=== PATIENT | male | born 1960 | race African-American/Black ===

== ENCOUNTER 2017-02-05 13:46 | Emergency (ER) | payer MEDICAID ==
[~2017-02-05] VITALS: Ht 175.3 cm; Wt 79.0 kg
[~2017-02-05 13:46] MED LIST: HYDR25TA PO; PHEN100C4 PO
[2017-02-05] MEDS ORDERED: INSULIN REGULAR (HUMULIN R) 300UNITS/3ML IV ONE (20:15)
[2017-02-05] MEDS ORDERED: DEXTROSE 50% WATER 50ML SYRINGE IV ONE (20:15)
[2017-02-05] MEDS ORDERED: CALCIUM CHLORIDE 1GM/10ML SYR IV ONE (20:15)
[2017-02-05] MEDS ORDERED: PHENYTOIN SODIUM 1,000 MG in SODIUM CHLORIDE 0.9% 100 ML IV ONE (20:15)
[2017-02-05] MEDS ORDERED: SODIUM BICARBONATE 8.4% 1 MEQ/ML 50ML SYR IV ONE (20:15)
[2017-02-05 21:01] LABS: EOSINOPHILS % 0.6 % (0.0-5.0); HEMATOCRIT. 40.6 % (42.0-52.0); HEMOGLOBIN. 13.6 g/dL (14.0-18.0); MEAN CORPUSCULAR HEMOGLOBIN 28.1 pg (28.0-32.0); MEAN CORPUSCULAR VOLUME 84.2 fL (80.0-94.0); MEAN PLATELET VOLUME 7.9 fl (7.4-10.4); MONOCYTES % 10.4 % (2.0-8.0); PLATELET 226 x1000/uL (130-400); RED BLOOD CELL COUNT 4.82 mill/uL (4.7-6.1); RED CELL DISTRIBUTION WIDTH 15.2 % (11.6-14.6)
[2017-02-05 21:07] LABS: INR 1.1
[2017-02-05 21:19] LABS: CARBON DIOXIDE 26 mEq/L (21-32); CHLORIDE 106 mEq/L (98-107); ETHANOL BLOOD < 10 mg/dL
[2017-02-05 21:56] LABS: CLARITY URINE CLEAR (CLEAR); COLOR URINE YELLOW (YELLOW); KETONES URINE TRACE (NEGATIVE); LEUKOCYTE ESTERASE URINE NEGATIVE (NEGATIVE); NITRITE URINE NEGATIVE (NEGATIVE); OCCULT BLOOD URINE NEGATIVE (NEGATIVE); PROTEIN URINE NEGATIVE (NEGATIVE); SPECIFIC GRAVITY URINE 1.028 (1.005-1.030)
[2017-02-05 22:32] LABS: *AMPHETAMINES SCREEN URINE NEGATIVE (NEGATIVE); *BARBITURATES SCREEN URINE NEGATIVE (NEGATIVE); *BENZODIAZEPINES SCREEN URINE NEGATIVE (NEGATIVE); *COCAINE SCREEN URINE NEGATIVE (NEGATIVE); CANNABINOID URINE SCREEN PRESUMTIVE POSITIVE (NEGATIVE); METHADONE URINE SCREEN NEGATIVE (NEGATIVE); OPIATES URINE SCREEN NEGATIVE (NEGATIVE); PHENCYCLIDINE URINE SCREEN NEGATIVE (NEGATIVE)
[2017-02-05 23:02] VITALS: BP 158/94
== END 2017-02-05 23:04 | disposition home or self-care (01) ==
LOC: ER 14:07
DX: G40.909 Epilepsy, unspecified, not intractable, without status epilepticus (principal); I10 Essential (primary) hypertension; G93.89 Other specified disorders of brain; J44.9 Chronic obstructive pulmonary disease, unspecified; F17.210 Nicotine dependence, cigarettes, uncomplicated; Z95.1 Presence of aortocoronary bypass graft; Z88.5 Allergy status to narcotic agent; F10.21 Alcohol dependence, in remission
CPT/HCPCS: 36415; 70450; 71010; 80053; 80305; 81003; 82962; 85025; 85610; 93005; 96365; 96366; 99285; G0482; J1165; J3490; Z7610; J1815; J7050

== ENCOUNTER 2017-03-11 01:54 | Emergency (ER) | payer MEDICAID ==
[~2017-03-11] VITALS: Ht 175.3 cm; Wt 67.0 kg
[2017-03-11] MEDS ORDERED: ALBUTEROL (0.083%) 2.5MG/3ML NEB HHN STA (03:07)
[2017-03-11] MEDS ORDERED: IPRATROPIUM BROMIDE (0.02%) 0.5MG/2.5ML NEB HHN STA (03:07)
[2017-03-11 03:24] LABS: BASOPHILS % 0.9 % (0.0-2.0); EOSINOPHILS % 1.8 % (0.0-5.0); HEMATOCRIT. 39.6 % (42.0-52.0); HEMOGLOBIN. 13.3 g/dL (14.0-18.0); LYMPHOCYTES % 24.7 % (20.0-50.0); MEAN CORPUSCULAR HEMOGLOBIN 28.5 pg (28.0-32.0); MEAN CORPUSCULAR VOLUME 84.7 fL (80.0-94.0); MEAN PLATELET VOLUME 7.7 fl (7.4-10.4); MONOCYTES % 9.8 % (2.0-8.0); NEUTROPHILS % 62.8 % (40.0-76.0); PLATELET 223 x1000/uL (130-400); RED BLOOD CELL COUNT 4.67 mill/uL (4.7-6.1); RED CELL DISTRIBUTION WIDTH 14.9 % (11.6-14.6)
[2017-03-11 03:34] LABS: CARBON DIOXIDE 26 mEq/L (21-32); CHLORIDE 110 mEq/L (98-107)
[2017-03-11 03:39] LABS: CLARITY URINE CLEAR (CLEAR); COLOR URINE YELLOW (YELLOW); KETONES URINE TRACE (NEGATIVE); LEUKOCYTE ESTERASE URINE NEGATIVE (NEGATIVE); NITRITE URINE NEGATIVE (NEGATIVE); OCCULT BLOOD URINE NEGATIVE (NEGATIVE); PH URINE 5.5 (4.5-8.0); PROTEIN URINE NEGATIVE (NEGATIVE); SPECIFIC GRAVITY URINE 1.029 (1.005-1.030)
[2017-03-11 03:49] LABS: *AMPHETAMINES SCREEN URINE NEGATIVE (NEGATIVE); *BARBITURATES SCREEN URINE NEGATIVE (NEGATIVE); *BENZODIAZEPINES SCREEN URINE NEGATIVE (NEGATIVE); *COCAINE SCREEN URINE NEGATIVE (NEGATIVE); CANNABINOID URINE SCREEN PRESUMTIVE POSITIVE (NEGATIVE); METHADONE URINE SCREEN NEGATIVE (NEGATIVE); OPIATES URINE SCREEN NEGATIVE (NEGATIVE); PHENCYCLIDINE URINE SCREEN NEGATIVE (NEGATIVE)
[2017-03-11 05:30] VITALS: BP 155/84
== END 2017-03-11 05:52 | disposition home or self-care (01) ==
LOC: ER 01:54
DX: J44.9 Chronic obstructive pulmonary disease, unspecified (principal); R42 Dizziness and giddiness; F17.200 Nicotine dependence, unspecified, uncomplicated; I10 Essential (primary) hypertension; I51.7 Cardiomegaly; R56.9 Unspecified convulsions; Z88.5 Allergy status to narcotic agent; Z91.010 Allergy to peanuts
CPT/HCPCS: 36415; 70450; 71045; 80048; 80185; 80305; 81003; 85025; 93005; 94640; 99285; J7611; Z7610

== ENCOUNTER 2017-04-02 09:00 | Emergency (ER) | payer MEDICAID ==
[~2017-04-02] VITALS: Ht 175.3 cm; Wt 76.0 kg
[2017-04-02] MEDS ORDERED: VALPROATE SODIUM 500 MG in DEXT 5% WATER 100 ML IV ONE (11:00)
[2017-04-02 12:17] VITALS: BP 159/93
== END 2017-04-02 12:39 | disposition home or self-care (01) ==
LOC: ER 09:58
DX: G40.909 Epilepsy, unspecified, not intractable, without status epilepticus (principal); Z88.5 Allergy status to narcotic agent; J44.9 Chronic obstructive pulmonary disease, unspecified; I10 Essential (primary) hypertension; F17.200 Nicotine dependence, unspecified, uncomplicated; Z91.010 Allergy to peanuts; Z91.14 Patient's other noncompliance with medication regimen
CPT/HCPCS: 96365; 99284; J3490; Z7610; J7060

== ENCOUNTER 2017-08-06 09:46 | Emergency (ER) | payer MEDICAID ==
[~2017-08-06] VITALS: Ht 175.3 cm; Wt 63.1 kg
[2017-08-06 12:09] VITALS: BP 168/103
== END 2017-08-06 12:10 | disposition home or self-care (01) ==
LOC: ER 10:16
DX: R56.9 Unspecified convulsions (principal); J44.9 Chronic obstructive pulmonary disease, unspecified; I10 Essential (primary) hypertension; F17.200 Nicotine dependence, unspecified, uncomplicated; F12.10 Cannabis abuse, uncomplicated; Z76.0 Encounter for issue of repeat prescription; Z91.010 Allergy to peanuts; Z88.5 Allergy status to narcotic agent
CPT/HCPCS: 99283; Z7610

== ENCOUNTER 2017-08-09 15:31 | Emergency (ER) | payer MEDICAID ==
[~2017-08-09] VITALS: Ht 175.3 cm; Wt 78.0 kg
[2017-08-09] MEDS ORDERED: LEVETIRACETAM 500MG TABLET PO ONE (16:45)
[2017-08-09 17:11] LABS: HEMATOCRIT 39.2 % (42.0-52.0); HEMOGLOBIN 13.2 g/dL (14.0-18.0); MEAN CORPUSCULAR HEMOGLOBIN 28.9 pg (28.0-32.0); MEAN CORPUSCULAR VOLUME 85.9 fL (80.0-94.0); PLATELET 213 x1000/uL (130-400); RED BLOOD CELL COUNT 4.57 mill/uL (4.7-6.1); RED CELL DISTRIBUTION WIDTH 13.8 % (11.6-14.6)
[2017-08-09 17:13] LABS: CHLORIDE 105 mEq/L (98-107)
[2017-08-09 18:29] VITALS: BP 155/97
== END 2017-08-09 18:49 | disposition home or self-care (01) ==
LOC: ER 15:31
DX: G40.909 Epilepsy, unspecified, not intractable, without status epilepticus (principal); R20.2 Paresthesia of skin; J44.9 Chronic obstructive pulmonary disease, unspecified; I10 Essential (primary) hypertension; F17.200 Nicotine dependence, unspecified, uncomplicated; F12.10 Cannabis abuse, uncomplicated; Z91.010 Allergy to peanuts; Z88.5 Allergy status to narcotic agent
CPT/HCPCS: 36415; 80053; 80185; 85027; 99284

== ENCOUNTER 2017-11-28 13:01 | Emergency (ER) | payer MEDICAID ==
[~2017-11-28] VITALS: Ht 167.6 cm; Wt 76.0 kg
[2017-11-28] MEDS ORDERED: CLONIDINE 0.1MG TABLET PO ONE (14:15)
[2017-11-28 15:22] LABS: BASOPHILS % 0.3 % (0.0-2.0); EOSINOPHILS % 2.5 % (0.0-5.0); HEMATOCRIT. 42.6 % (42.0-52.0); HEMOGLOBIN. 14.4 g/dL (14.0-18.0); LYMPHOCYTES % 48.3 % (20.0-50.0); MEAN CORPUSCULAR VOLUME 85.6 fL (80.0-94.0); MEAN PLATELET VOLUME 8.1 fl (7.4-10.4); NEUTROPHILS % 38.9 % (40.0-76.0); PLATELET 198 x1000/uL (130-400); RED BLOOD CELL COUNT 4.97 mill/uL (4.7-6.1)
[2017-11-28 15:26] LABS: CHLORIDE 107 mEq/L (98-107)
[2017-11-28 15:46] VITALS: BP 169/98
== END 2017-11-28 16:24 | disposition home or self-care (01) ==
LOC: ER 13:01
DX: Z76.0 Encounter for issue of repeat prescription (principal); I16.0 Hypertensive urgency; Z91.14 Patient's other noncompliance with medication regimen; G40.909 Epilepsy, unspecified, not intractable, without status epilepticus; F17.210 Nicotine dependence, cigarettes, uncomplicated; F12.90 Cannabis use, unspecified, uncomplicated; Z88.5 Allergy status to narcotic agent; Z95.2 Presence of prosthetic heart valve
CPT/HCPCS: 36415; 99284

== ENCOUNTER 2017-12-28 03:43 | Emergency (ER) | payer MEDICAID, OTHER ==
[~2017-12-28] VITALS: Ht 170.2 cm; Wt 69.0 kg
[2017-12-28] MEDS ORDERED: PHENYTOIN SODIUM EXTENDED 100MG CAPSULE PO ONE (04:30)
[2017-12-28 04:57] LABS: CHLORIDE 106 mEq/L (98-107)
[2017-12-28 05:02] LABS: ETHANOL BLOOD < 10 mg/dL
[2017-12-28 05:04] LABS: BASOPHILS % 0.8 % (0.0-2.0); EOSINOPHILS % 2.5 % (0.0-5.0); HEMATOCRIT. 46.4 % (42.0-52.0); HEMOGLOBIN. 15.6 g/dL (14.0-18.0); LYMPHOCYTES % 40.1 % (20.0-50.0); MEAN CORPUSCULAR HEMOGLOBIN 29.5 pg (28.0-32.0); MEAN CORPUSCULAR VOLUME 87.9 fL (80.0-94.0); MEAN PLATELET VOLUME 8.5 fl (7.4-10.4); MONOCYTES % 9.2 % (2.0-8.0); NEUTROPHILS % 47.4 % (40.0-76.0); PLATELET 214 x1000/uL (130-400); RED BLOOD CELL COUNT 5.28 mill/uL (4.7-6.1); RED CELL DISTRIBUTION WIDTH 14.7 % (11.6-14.6)
[2017-12-28 05:06] LABS: CREATINE KINASE 139 IU/L (39-308)
[2017-12-28 06:47] VITALS: BP 148/83
== END 2017-12-28 06:59 | disposition home or self-care (01) ==
LOC: ER 03:43
DX: R41.82 Altered mental status, unspecified (principal); F10.20 Alcohol dependence, uncomplicated; Y90.0 Blood alcohol level of less than 20 mg/100 ml; G40.909 Epilepsy, unspecified, not intractable, without status epilepticus; I10 Essential (primary) hypertension; F17.210 Nicotine dependence, cigarettes, uncomplicated; Z88.5 Allergy status to narcotic agent; Z91.010 Allergy to peanuts
CPT/HCPCS: 36415; 80053; 82550; 85025; 99284; 99406; G0482

== ENCOUNTER 2018-08-29 12:41 | Emergency (ER) | payer MEDICAID ==
[~2018-08-29] VITALS: Ht 175.3 cm; Wt 74.0 kg
[2018-08-29 12:50] VITALS: BP 174/105
== END 2018-08-29 16:40 | disposition left against medical advice (07) ==
LOC: ER 12:41
DX: R68.89 Other general symptoms and signs (principal); Z53.21 Procedure and treatment not carried out due to patient leaving prior to being seen by health care provider

== ENCOUNTER 2018-09-26 07:33 | Emergency (ER) | payer MEDICAID ==
[~2018-09-26] VITALS: Ht 175.3 cm; Wt 80.0 kg
[2018-09-26] MEDS ORDERED: LEVETIRACETAM 500MG PREMIX 100 ML IV ONE (08:00)
[2018-09-26 09:07] LABS: HEMATOCRIT. 39.4 % (42.0-52.0); HEMOGLOBIN. 13.4 g/dL (14.0-18.0); MEAN CORPUSCULAR HEMOGLOBIN 29.5 pg (28.0-32.0); MEAN CORPUSCULAR VOLUME 86.7 fL (80.0-94.0); PLATELET 242 x1000/uL (130-400); RED BLOOD CELL COUNT 4.54 mill/uL (4.7-6.1); RED CELL DISTRIBUTION WIDTH 14.4 % (11.6-14.6)
[2018-09-26 09:13] LABS: CHLORIDE 110 mEq/L (98-107)
[2018-09-26 10:04] LABS: PLATELET ESTIMATE NORMAL
[2018-09-26 10:48] VITALS: BP 148/89
== END 2018-09-26 10:49 | disposition home or self-care (01) ==
LOC: ER 07:33
DX: R56.9 Unspecified convulsions (principal); J44.9 Chronic obstructive pulmonary disease, unspecified; I10 Essential (primary) hypertension; Z98.890 Other specified postprocedural states; Z88.5 Allergy status to narcotic agent; Z91.010 Allergy to peanuts
CPT/HCPCS: 36415; 80053; 80185; 82962; 85025; 93005; 96365; 99284; J1953

== ENCOUNTER 2018-11-12 10:36 | Emergency (ER) | payer MEDICAID ==
[~2018-11-12] VITALS: Ht 175.3 cm; Wt 77.0 kg
[2018-11-12] MEDS ORDERED: ALBUTEROL (0.083%) 2.5MG/3ML NEB HHN STA (11:25)
[2018-11-12] MEDS ORDERED: METHYLPREDNISOLONE SOD SUCC 125 MG/2 ML VIAL IV STA (11:25)
[2018-11-12] MEDS ORDERED: IPRATROPIUM BROMIDE (0.02%) 0.5MG/2.5ML NEB HHN STA (11:25)
[2018-11-12 11:52] LABS: EOSINOPHILS % 2.8 % (0.0-5.0); HEMOGLOBIN. 13.9 g/dL (14.0-18.0); LYMPHOCYTES % 44.9 % (20.0-50.0); MEAN CORPUSCULAR HEMOGLOBIN 28.6 pg (28.0-32.0); MEAN CORPUSCULAR VOLUME 86.7 fL (80.0-94.0); MEAN PLATELET VOLUME 7.9 fl (7.4-10.4); MONOCYTES % 12.4 % (2.0-8.0); NEUTROPHILS % 38.9 % (40.0-76.0); PLATELET 205 x1000/uL (130-400); RED BLOOD CELL COUNT 4.85 mill/uL (4.7-6.1); RED CELL DISTRIBUTION WIDTH 13.8 % (11.6-14.6)
[2018-11-12 11:59] LABS: CHLORIDE 110 mEq/L (98-107)
[2018-11-12 13:10] VITALS: BP 148/85
== END 2018-11-12 13:10 | disposition home or self-care (01) ==
LOC: ER 10:36
DX: J44.1 Chronic obstructive pulmonary disease with (acute) exacerbation (principal); R53.83 Other fatigue; F17.210 Nicotine dependence, cigarettes, uncomplicated; Z71.6 Tobacco abuse counseling; I10 Essential (primary) hypertension; G40.909 Epilepsy, unspecified, not intractable, without status epilepticus; D64.9 Anemia, unspecified
CPT/HCPCS: 36415; 71045; 80053; 83880; 84484; 85025; 93005; 94644; 96374; 99284; 99406; J2930; J7611; Z7610

== ENCOUNTER 2021-02-05 03:25 | Emergency (ER) | payer MEDICAID, OTHER ==
[~2021-02-05] VITALS: Ht 175.3 cm; Wt 73.0 kg
[2021-02-05 05:11] LABS: BASOPHILS % 0.8 % (0.0-2.0); EOSINOPHILS % 1.7 % (0.0-5.0); HEMATOCRIT. 42.1 % (42.0-52.0); HEMOGLOBIN. 13.8 g/dL (14.0-18.0); LYMPHOCYTES % 32.8 % (20.0-50.0); MEAN CORPUSCULAR HEMOGLOBIN 28.2 pg (28.0-32.0); MEAN CORPUSCULAR VOLUME 86.3 fL (80.0-94.0); MEAN PLATELET VOLUME 8.8 fl (7.4-10.4); MONOCYTES % 9.9 % (2.0-8.0); NEUTROPHILS % 54.8 % (40.0-76.0); PLATELET 173 x1000/uL (130-400); RED BLOOD CELL COUNT 4.88 mill/uL (4.7-6.1); RED CELL DISTRIBUTION WIDTH 14.6 % (11.6-14.6)
[2021-02-05] MEDS ORDERED: IOHEXOL-350 100 ML BOTTLE ONE (05:51)
[2021-02-05] MEDS ORDERED: ASPIRIN 325MG EC TABLET PO ONE (06:15)
[2021-02-05 06:46] LABS: CREATINE KINASE 224 IU/L (39-308); ETHANOL BLOOD < 10 mg/dL
[2021-02-05 06:47] LABS: CHLORIDE 129 mEq/L (98-107)
[2021-02-05] MEDS ORDERED: POTASSIUM CHLORIDE INJ 40 MEQ in DEXT 5% WATER 500 ML IV ONE (07:00)
[2021-02-05 10:17] VITALS: BP 178/100
== END 2021-02-05 10:33 | disposition short-term general hospital (02) ==
LOC: ER 03:25
DX: I63.9 Cerebral infarction, unspecified (principal); F10.229 Alcohol dependence with intoxication, unspecified; I10 Essential (primary) hypertension; Z20.822 Contact with and (suspected) exposure to COVID-19
CPT/HCPCS: 36415; 70450; 70496; 70498; 71045; 80053; 80320; 82550; 82962; 83690; 83880; 84484; 85025; 87426; 93005; 96365; 99291; J3480; J7060; Q9967; G0480